=== PATIENT | male | born 1960 ===

== ENCOUNTER 2023-07-05 08:15 | Outpatient (REF) | payer OTHER, SELFPAY | END 2023-07-05 08:16 | disposition home or self-care (01) | LOC: HO.HOSX 08:15 | PROVIDERS: Visit Provider Orthopaedic Surgery | DX: M75.42 Impingement syndrome of left shoulder (principal) | CPT/HCPCS: 73030 ==

== ENCOUNTER 2023-07-05 12:52 | Outpatient (AMB) | payer OTHER, SELFPAY ==
--- NOTE | 2023-07-05 13:02 | MHC.OFFVIS ---
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 Patient reports ongoing pain for 8 years. He states that his pain is the same as his right shoulder before he had surgery. Patient had surgery about 8 years ago. He denies any pain in his right shoulder. He denies any fevers or chills. He has had injections in the past which gave him minimal relief. He has also done physical therapy for 12 weeks over the last 6 months which aggravated his pain. He has tried Tylenol and anti-inflammatory medicines which gave him minimal relief. Most of the pain is along the superior and lateral aspects of his left shoulder. Allergies No Known Allergies Allergy (Verified 07/05/23 13:05) [facility] Social History (Updated 07/05/23 @ 13:05 by Neil Nix) Alcohol intake: current Patient Tobacco Use Status: Never used Tobacco Physical Exam Vital Signs: BMI result Body Mass Index 34.3 Const Other: Well-nourished well-developed very friendly male awake alert and oriented x3 in no acute distress Lungs - clear to auscultation bilaterally with symmetric expansion Cardiovascular exam - regular rate and rhythm Abdominal exam - soft nontender nondistended Extrem Other: Bilateral upper extremity examination shows good capillary refill, no skin lesions noted, normal sensation light touch Left shoulder examination shows slightly decreased range of motion when compared to his right shoulder, 4+ out of 5 strength with supraspinatus testing, positive impingement signs, tenderness over his acromioclavicular joint, no instability Assessment & Plan Assessment & Plan (1) Impingement syndrome of left shoulder: Code(s): M75.42 - Impingement syndrome of left shoulder Plan: Mr. Hart presents with left shoulder pain due to impingement syndrome, acromioclavicular joint arthritis and rotator cuff tendinosis versus possible rotator cuff tearing. I had a lengthy discussion with the patient regarding the treatment options. At this point he has failed continued non operative treatments. The risks and benefits of left shoulder surgery were discussed at length with the patient. The patient wishes to proceed with surgery. Surgery will most likely involve left shoulder diagnostic arthroscopy with distal clavicle excision, acromioplasty and rotator cuff repair showed a full-thickness tear be found at the time of his surgery. The patient will contact my office to pick a surgery date. He will be given a prescription for pain medicine at the time of his surgery. He will follow-up as instructed. Feel free to call me at any time should questions regarding his orthopedic management arise. I spent 22 minutes in reviewing the patient's records and imaging studies, seeing the patient and documenting in the medical record. Orders: Orders XR shoulder LT min 2V Today M25.512 - Pain in left shoulder Coding Level of Care Code Est Pt Level 2 (41704) Diagnoses Impingement syndrome of left shoulder M75.42
[2023-07-05 13:05] VITALS: BMI 34.3
== END 2023-07-05 13:27 | disposition home or self-care (01) ==
PROVIDERS: PCP Physician Assistant Medical; Visit Provider Orthopaedic Surgery
DX: M75.42 Impingement syndrome of left shoulder (principal)
CPT/HCPCS: 99212

== ENCOUNTER 2023-08-03 08:08 | Day surgery (SDC) | payer OTHER, SELFPAY ==
[2023-08-01 10:03] VITALS: BMI 35.3
--- NOTE | 2023-08-02 09:14 | P.CONAN_ITS ---
Documented by User: Yesica Coombs NP 08/02/23 09:14 HPI - Anesthesia Eval Consult details Narrative: 63yo M for Shoulder Arthroscopy,distal clavical excision,acromialplasty,poss rotator cuff repair [facility] Active Problems Active Problems: All Active Problems (Updated 08/01/23 @ 10:01 by Alma Alejo RN) Impingement syndrome of left shoulder (Acute) Left shoulder pain (Acute) Past Medical History Medical History (Updated 08/03/23 @ 08:26 by Maritza Ann) Sleep apnea Hypothyroid Surgical History Surgical History (Updated 08/03/23 @ 08:29 by Maritza Ann) H/O hemorrhoidectomy H/O neck surgery Hx of shoulder surgery Hx of knee surgery Social History Social History (Updated 07/05/23 @ 13:05 by Neil Nix) Alcohol intake: current Alcohol intake frequency: holidays/special occasions only Patient Tobacco Use Status: Never used Tobacco Use of substances other than those prescribed or required for medical reasons: No Are you DNR?: No Advance Directives: No Advance Directives Information Provided: Yes Meds Allergies Allergy/AdvReac Type Severity Reaction Status Date / Time No Known Allergies Allergy Verified 08/03/23 08:28 Active Medications: Current Medications Cefazolin Sodium/Dextrose (Ancef) 2 gm in 50 mls @ 100 mls/hr IV PREOP ONE Stop: 08/03/23 04:04 Home Medications Medication Instructions Recorded Confirmed Last Taken Type alprazolam 0.5 mg tablet 0.5 mg PO DAILY PRN anxiety 08/01/23 08/03/23 Unknown History levothyroxine 100 mcg tablet 100 mcg PO DAILY 08/01/23 08/03/23 08/03/23 History Exam Exam Date and Time: August 02, 2023 0914 Height,Weight and Vital Signs: Height 6 ft Weight 117.934 kg Assessment and Plan Assessment Anesthesia Assessment: Chart Reviewed Documented by User: Cecilio Walker MD 08/03/23 09:19 [facility] Past Medical History Medical History (Updated 08/03/23 @ 08:26 by Maritza Ann) Sleep apnea Hypothyroid Family History Family history of problems with anesthesia: No Surgical History Surgical History (Updated 08/03/23 @ 08:29 by Maritza Ann) H/O hemorrhoidectomy H/O neck surgery Hx of shoulder surgery Hx of knee surgery History of Problems with Anesthesia: No Social History Social History (Updated 07/05/23 @ 13:05 by Neil Nix) Alcohol intake: current Alcohol intake frequency: holidays/special occasions only Patient Tobacco Use Status: Never used Tobacco Use of substances other than those prescribed or required for medical reasons: No Are you DNR?: No Advance Directives: No Advance Directives Information Provided: Yes Meds Allergies Allergy/AdvReac Type Severity Reaction Status Date / Time No Known Allergies Allergy Verified 08/03/23 08:28 Home Medications Medication Instructions Recorded Confirmed Last Taken Type alprazolam 0.5 mg tablet 0.5 mg PO DAILY PRN anxiety 08/01/23 08/03/23 Unknown History levothyroxine 100 mcg tablet 100 mcg PO DAILY 08/01/23 08/03/23 08/03/23 History Exam Airway Mallampati Class: IV TM Dist: <=3cm Neck ROM: Poor Heart: rrr Lungs: cta Assessment and Plan Assessment Anesthesia Assessment: Anesthesia Plan Discussed Final Anesthetic Review Family History of Problems with Anesthesia: No History of Problems with Anesthesia: No NPO: Yes ASA Class: III Final Preanesthetic Review: No Changes in Pt Med Stat, Meds/Allgs Chart Reviewed, Consent Obtained/Reviewed and Anes Risks/Benef Reviewed Patient Risk: Intermediate Procedure Risk: Intermediate Anesthetic Plan Anesthetic Plan: GA and Regional Block Disposition: Standard PACU
[2023-08-03] VITALS (8 sets, daily range): BP systolic 124–157; BP diastolic 62–93; PULSE 69–83; RESP 16–19; TEMP 36.3–36.6; O2SAT 95–97; BMI 35.9
--- NOTE | 2023-08-03 08:57 | PC.NURSE ---
Patient in preop and mentioned that he sees a linotype machinist apprentice and sleep study doctor from [facility] and has been worked up for sleep apnea recently. He states I want to tell you this because no one listens to me, I have told my linotype machinist apprentice doctor that my sats go down as low as 87% at rest when im home and I get short of breath at rest sometimes too. I have had a few sleep studies and they all come back normal but my last one showed sleep apnea. I do have a CPAP at home that I am trying to get used to and I wear sometimes Patient further explained that he is very scared of how he will breathe under anesthesia and does not want to lay flat. No records of any respiratory issues in computer system. Current Sao2 98%, Respirations easy and regular, Lung sounds clear throughout. Dr. Walker made aware and at bedside to discuss with patient. May proceed with surgery at this time.
[2023-08-03] MEDS: Lactated Ringers 1,000 ML 100 ML IVCONT (09:11)
--- NOTE | 2023-08-03 11:40 | P.BOP_ITS ---
Brief Operative Note Date of Service: 08/03/23 Pre-op diagnosis: Left shoulder impingement syndrome, left shoulder acromioclavicular joint arthritis, left shoulder adhesive capsulitis Post-op diagnosis: same Procedure: Left shoulder diagnostic arthroscopy with left shoulder arthroscopic distal clavicle excision, left shoulder arthroscopic acromioplasty, left shoulder arthroscopic anterior capsular release, left shoulder manipulation under anesthesia Implants: none Surgeon: Esequiel Ley MD Anesthesia: GETA and regional Was an Precision Optics Technician used for this Procedure?: No Estimated blood loss (mL): 10 Pathology: none sent Condition: stable Disposition: PACU
--- NOTE | 2023-08-03 11:41 | W.PM.OPN ---
Operative Note Operative Note Date of Service: 08/03/23 Narrative: After the patient was identified as Bridger Hart and their left shoulder was initialed by myself the patient was brought to the holding area where a left shoulder interscalene regional block was performed by the anesthesiologist in routine fashion. The patient was then brought to the operating room where general anesthesia was induced by the anesthesiologist in routine fashion. The patient was given 2 g of IV Ancef preoperatively for infection prophylaxis. Examination under anesthesia of the patient's left shoulder showed decreased range of motion when compared to the right shoulder. The patient's left shoulder had forward flexion to 120 degrees compared to 170 degrees, external rotation to 20 degrees compared to 60 degrees, and internal rotation to 40 degrees compared to 50 degrees. The patient was gently positioned in the beach chair position with all bony prominences well padded. The patient's left shoulder region and upper extremity were prepped and draped in sterile fashion. A formal time-out was completed. A #11 scalpel blade was used to make a posterior portal 2 cm inferior and 1 cm medial to the posterolateral corner of the acromion. Blunt trocar technique was used to enter the glenohumeral joint in routine fashion. An anterior portal was made just lateral to the coracoid process after proper positioning was confirmed using a spinal needle. Diagnostic arthroscopy showed minimal degenerative changes of the glenoid and humeral head articular surfaces. There was no evidence of rotator cuff tearing. There was no evidence of injury to the biceps tendon or its insertion onto the glenoid. There was inflammation of the anterior joint capsule consistent with adhesive capsulitis. The ArthroCare Wand was then used to perform an anterior capsular release between the inferior border of the biceps tendon and the superior border of the subscapularis tendon. The arthroscope was then placed from the posterior portal into the subacromial space. A lateral portal was made 2 fingerbreadths lateral to the anterior lateral corner of the acromion. The ArthroCare Wand was used to ablate soft tissues along the undersurface of the acromion as well as to excise the coracoacromial ligament. There was a sharp spur along the undersurface of the acromion which was removed using the hooded bur. The arthroscope was then placed into the lateral portal and the acromioplasty was completed with the bur in the posterior portal using the posterior aspect of the acromion as a cutting block. The ArthroCare Wand was then brought in through the anterior portal and was used to ablate soft tissues along the acromioclavicular joint and distal clavicle. The posterior and superior ligamentous structures were left intact. A distal clavicle excision of 8 mm was performed using the hooded bur. Any remaining bursal tissue was removed using the arthroscopic shaver. The subacromial space was irrigated and then drained. All arthroscopic instruments were removed. A gentle manipulation under anesthesia was then performed. Full passive range of motion was easily obtained. The 3 portals were closed with 3-0 nylon interrupted suture. The subacromial space was injected with Marcaine. Dry sterile dressing was placed over all incisions. The patient's left upper extremity was placed into a sling. The patient was awoken and extubated in the operating room. The patient was transferred to the recovery room in stable condition.
[2023-08-03] MEDS: cefTRIAXone sodium 1 GM in 0.9 % Sodium Chloride 50 ML IV (12:14)
== END 2023-08-03 13:15 | disposition home or self-care (01) ==
PROVIDERS: PCP Physician Assistant Medical; Visit Provider Orthopaedic Surgery
PROC: (CPT 29805; principal; 2023-08-03 09:40)
DX: M75.02 Adhesive capsulitis of left shoulder (principal); M75.42 Impingement syndrome of left shoulder; M25.512 Pain in left shoulder; M19.012 Primary osteoarthritis, left shoulder; G47.30 Sleep apnea, unspecified; E03.9 Hypothyroidism, unspecified; Z98.890 Other specified postprocedural states; Z79.899 Other long term (current) drug therapy
CPT/HCPCS: 29824; 29825; 29826; J0131; J0171; J0330; J0690; J0696; J2250; J2371; J2405; J2795

== ENCOUNTER → 2023-08-03 08:08 | Outpatient (BNV) | payer OTHER, SELFPAY | PROVIDERS: PCP Physician Assistant Medical; Visit Provider Orthopaedic Surgery | DX: M75.42 Impingement syndrome of left shoulder (principal); M75.32 Calcific tendinitis of left shoulder; M19.012 Primary osteoarthritis, left shoulder | CPT/HCPCS: 29824; 29825; 29826 ==

== ENCOUNTER 2023-08-16 13:35 | Outpatient (AMB) | payer OTHER, SELFPAY ==
--- NOTE | 2023-08-16 13:54 | A.OFFVIS_ITS ---
Intake Intake Visit Reasons: PO-Lt Shld 08/03 Intake Note: Bridger 63 yr old male presents today for his P/O visit for his left shoulder from 08/03/[address] Ley. States he has no pain however it spikes up to 3- 4/10 with exercise. He continues with his home stretching program. He is no longer taking narcotics for his discomfort. He denies any fevers or chills. Allergies No Known Allergies Allergy (Verified 08/16/23 13:58) Medication List - Last Reconciled 08/17/23 by Esequiel Ley MD alprazolam 0.5 mg PO DAILY PRN levothyroxine 100 mcg PO DAILY oxycodone-acetaminophen 5-325 mg (Percocet) 2 tabs PO Q4H PRN PFSH Medical History (Updated 08/03/23 @ 08:26 by Maritza Ann) Sleep apnea Hypothyroid Surgical History (Updated 08/03/23 @ 08:29 by Maritza Ann) H/O hemorrhoidectomy H/O neck surgery Hx of shoulder surgery Hx of knee surgery Social History Alcohol intake: current Alcohol intake frequency: holidays/special occasions only Patient Tobacco Use Status: Never used Tobacco Physical Exam Extrem Other: Physical examination of the patient's left shoulder shows that the surgical incisions are healing well, no erythema, almost full range of motion when compared to his right shoulder with mild discomfort Assessment & Plan Assessment & Plan (1) Left shoulder pain: Code(s): M25.512 - Pain in left shoulder Plan Mr. Hart is doing very well after undergoing left shoulder arthroscopic surgery on 08/03/2023. His sutures were removed and Steri-Strips placed over his incisions. Will continue with his home stretching program. The do's and don'ts of lifting were discussed at length with the patient. He will contact me prior to his follow-up appointment in 8 weeks should any questions or concerns arise. Feel free to call me at any time should questions regarding his orthopedic management arise. Coding Level of Care Code Global (91508) Diagnoses Left shoulder pain M25.512
== END 2023-08-16 14:26 | disposition home or self-care (01) ==
PROVIDERS: PCP Physician Assistant Medical; Visit Provider Orthopaedic Surgery
DX: M25.512 Pain in left shoulder (principal)
CPT/HCPCS: 99024

== ENCOUNTER → 2023-08-16 13:35 | Outpatient (BNVA) | payer OTHER, SELFPAY | PROVIDERS: PCP Physician Assistant Medical; Visit Provider Orthopaedic Surgery ==

== ENCOUNTER 2025-07-31 09:19 | Outpatient (AMB) | payer OTHER, SELFPAY ==
[2025-07-31 09:33] VITALS: BMI 34.3
--- NOTE | 2025-07-31 09:33 | HO.SPINEOV ---
Vital Signs 07/31/25 09:33 Height 6 ft 1 in Weight 260 lb BMI 34.3 Intake Visit Reasons: Neck pain Intake Note: Mr. Hart is here today c/o neck pain. MRI done at [facility] Retail Leader Required: No Allergies No Known Allergies Allergy (Verified 07/31/25 09:34) Physical Exam Vital Signs: BMI result Body Mass Index 34.3 Assessment & Plan Assessment & Plan (1) Status post cervical spinal fusion: Code(s): Z98.1 - Arthrodesis status Category: Surgical Plan Dear colleague Thank you for referring Bridger Hart to the office today with a chief complaint of neck soreness. HPI: This patient underwent an anterior diskectomy and fusion [address] cornejo. Since then he is having episodic attacks of chest tightness that radiates down his arms after a 2 mi walk. The symptoms disappear after sitting. He returned to Dr. Patel who according to the patient was not receptive to hearing about the symptoms. He comes in for a 2nd opinion. I reviewed the imaging of the cervical spine. An x-ray shows a solid fusion C6-7. An MRI of the cervical spine is unremarkable. In my opinion, he suffering from hyperventilation that are the cause for his episodic events. He was kind of surprised to hear that hyperventilation does not always imply the classic phenomena of heavy breathing. He was satisfied with the explanation. He may see me for lumbar complaints in the future. I spent 30 minutes in his consult reviewing imaging, history and discussing plan of care. Thank you for allowing me take care of your patient. Anoop Anglin MD, PhD Spine Fellowship Trained Neurosurgeon Director, [facility] Coding Level of Care Code New Pt Level 3 (98185) Diagnoses Status post cervical spinal fusion Z98.1
--- OUTSIDE RECORDS SUMMARY | 2025-07-31 10:19 | XMS_ITS | Clinical Summary ---
Author Organization [facility] Address [address] [place] [id number] Care Team Providers Care Auto Bumper Straightener Name Role Phone Rosalie Tong MD Primary Care Provide r Allergies No known active allergies Medications Medication Sig Dispensed Refills Start Date End Date Status clotrimazole-betametha sone (LOTRISONE) cream apply to rash twice a day if needed 0 01/30/2018 Active levothyroxine (SYNTHROID, LEVOXYL) tablet 100 mcg 0 02/24/2018 Active Social History Tobacco Use Types Packs/Day Years Used Date Smoking Tobacco: Never Alcohol Use Standard Drinks/Week Comments Yes 0 (1 standard drink = 0.6 oz pur e alcohol) social Sex and Gender Information Value Date Recorded Sex Assigned at Not on file Gender Identity Not on file Sexual Orientation Not on file Job Start Date Occupation Industry Not on file Not on file Not on file Last Filed Vital Signs Vital Sign Reading Time Taken Comments Blood Pressure - - Pulse - - Temperature - - Respiratory Rate - - Oxygen Saturation - - Inhaled Oxygen Concentration - - Weight 111.1 kg (245 lb) 03/13/2018 1:22 PM EDT Height 182.9 cm (6') 03/13/2018 1:22 PM EDT Body Mass Index 33.23 03/13/2018 1:22 PM EDT Plan of Treatment Health Maintenance Due Date Last Done Comments Hepatitis C Screening 1962 COVID-19 Vaccine (#1) 1962 Depression Screening 1974 Preventative Health Evaluation 1980 DTap / Tdap / Td (1 - Tdap) 1981 Colon Cancer Screening (Colonoscopy) 2007 Shingrix-Zoster Vaccine (1 of 2) 2012 Influenza Vaccine (#1) 2025 RSV Adult > 60+ Yrs or Pregn ant (1 - 1-dose 75+ series) 2037 Hepatitis B Vaccines Aged Out No long er eligible based on patient's age to complete this topic Pneumococcal Vaccine Aged Out No long er eligible based on patient's age to complete this topic RSV Ped < 20 months Aged Out No longe r eligible based on patient's age to complete this topic Care Teams Auto Bumper Straightener Relationship Specialty Start Date End Date Rosalie Tong MD [address] [place], [place] [id number] [id number] PCP - General Internal Medicine 03/06/18
--- OUTSIDE RECORDS SUMMARY | 2025-07-31 10:19 | XMS_ITS | Encounter Summary ---
Author Organization [facility] Address [address] [place] [address] Phone Care Team Providers Care Donor Services Coordinator Name Role Phone Bety Aguirre Primary Care Provider [phone] Chico Bonilla MD Unavailable [phone] Encounter Details Date Type Department Care Team (Late st Contact Info) Description 10/19/2022 Procedure Pass OR Admitting Dept - Virtual Department [address] [place] [address] Social History Tobacco Use Types Packs/Day Years Used Date Smoking Tobacco: Never Smokeless Tobacco: Never Alcohol Use Standard Drinks/Week Comments Never 0 (1 standard drink = 0.6 oz pur e alcohol) Comments Unknown Sex and Gender Information Value Date Recorded Sex Assigned at Choose not to disclose 10:59 AM EST Legal Sex Male 12:50 PM EDT Gender Identity Choose not to disclose 10:59 AM EST Sexual Orientation Choose not to disclose 2021 10:59 AM EST documented as of this encounter Plan of Treatment Not on file documented as of this encounter Visit Diagnoses Not on filedocumented in this encounter Additional Health Concerns Assessment Noted Time PHQ-2 Depression Total Score: 0 09/05/20 22 9:37 AM EST documented as of this encounter Care Teams Donor Services Coordinator Relationship Specialty Start Date End Date Bety Aguirre PA PCP - General Unknown Provider Specialty 08/03/20 Chico Bonilla MD [address] [place] [address] Internal Medicine 09/08/20 documented as of this encounter Additional Source Comments The information contained in this document represents components of the legal health record. It is not the complete legal health record.[facility]
--- OUTSIDE RECORDS SUMMARY | 2025-07-31 10:19 | XMS_ITS | Clinical Summary ---
Author Organization [address] [place] [address] Address [address] [place] [address] Phone Care Team Providers Care Grease Refining Supervisor Name Role Phone Estuardo Majano NP Primary Care Provider [phone] Allergies Active Allergy Reactions Criticality Noted Date Comments Grass Pollen 12/03/2024 Mold 12/03/2024 Pollen Extracts 12/03/2024 Medications dapagliflozin propanediol (FARXIGA) 10 mg tablet Take 1 tablet (10 mg total) by mouth 2 (two) times a day. Active levothyroxine sodium (TIROSINT) 100 mcg capsule Take 1 capsule (100 mcg total) by mouth 1 (one) time each day. Active Hospital, Clinic, or Other Facility Administered Medication Ordered Dose Route Frequency Start Date End Date Status perflutren lipid microsphere (DEFINITY) 1.3 mL in sodium chloride 0.9% 8.7 mL injection 10 mL IV Once in imaging 12/18/2024 Active Active Problems Problem Noted Date Diagnosed Date Palpitations 12/03/2024 Assessment & Plan (12/03/2024 2:26 PM EST): He does continue to endorse episodes of palpitations which have been present since he was a teenager. He does not endorse increase frequency or duration of his palpitations. We did discuss triggers such as increased caffeine or alcohol intake, dehydration or infection. He is very mindful about his caffeine consumption and has completely discontinued even drinking the caffeinated coffee. We did discuss the potential for updating monitoring to further evaluate for increase in ectopy or for any sustained arrhythmias however the patient would like to defer at this time. Encounters Date Type Department Care Team Description 05/28/2025 10:00 AM EDT Ancillary Procedure [facility] Cardiology [facility] - [address] [place] [address] Chest pain, unspecified type; Shortness of breath 05/12/2025 Telephone [facility] - [address] [place] [address] Radha Pedroza MD 05/06/2025 Telephone [facility] - [facility] [address] [place] [address] Estuardo Majano NP from Last 3 Months Surgical History Surgery Date Site/Laterality Comments OTHER SURGICAL HISTORY Right PROCEDURE: ARTHROSCOPY SHOULDER SURGI KNEE ARTHROSCOPY PROCEDURE: CA ARTHROSCOPY KNEE DIAGNOSTIC W/WO SYNOVIAL BX SPX OTHER SURGICAL HISTORY PROCEDURE: ---- OTHER ----; COMMENT: hemorrhoidectomy COLONOSCOPY 04/18/2019 PROCEDURE: HISTORICAL COLONOSCOPY; COMMENT: performed by Lolita TRUJILLO, Hans Mari OTHER SURGICAL HISTORY PROCEDURE: HISTORY OTHER; COMMENT: Hemorrhoid operation Medical History Medical History Date Comments History of TIA (transient is chemic attack) 12/02/2018 DX:History of TIA (transient ischemic attack) Anxiety 12/02/2018 DX:Anxiety Bo's thyroiditis 12/02/2018 DX:Angel nohemy's thyroiditis; COMMENT: hypothyroidism Panic attack 12/02/2018 DX:Panic attack Positive D dimer 12/02/2018 DX:Positive D d primo GERD (gastroesophageal reflu x disease) 12/10/2018 DX:GERD (gastroesophageal re flux disease) Hyperlipidemia 12/10/2018 DX:Hyperlipidemi a History of herpes zoster 12/10/2018 DX:Hist ory of herpes zoster Insomnia 12/10/2018 DX:Insomnia Allergic rhinitis DX:Allergic rh initis Chronic dyspnea DX:Chronic dyspn ea Anal fissure DX:Anal fissure Diarrhea DX:Diarrhea Hypothyroidism DX:Hypothyroidis m Lymphocytic colitis DX:Lymphocyt ic colitis Class 1 obesity DX:Class 1 obesi ty Throat irritation DX:Throat irri tation Transient cerebral ischemia DX:T ransient cerebral ischemia Tubular adenoma of colon DX:Tubu lar adenoma of colon Family History Medical History Relation Name Comments Prostate cancer Father Coronary artery disease Mother Relation Name Status Comments Father Mother Social History Tobacco Use Types Packs/Day Years Used Date Smoking Tobacco: Former Smokeless Tobacco: Never Alcohol Use Standard Drinks/Week Comments Yes 0 (1 standard drink = 0.6 oz pur e alcohol) Sex and Gender Information Value Date Recorded Sex Assigned at Not on file Legal Sex Male 2:48 PM EST Gender Identity Not on file Sexual Orientation Not on file Obstetrics History Last Filed Vital Signs Vital Sign Reading Time Taken Comments Blood Pressure 152/85 05/28/2025 10:39 AM EDT Pulse 70 12/03/2024 1:45 PM EST Temperature - - Respiratory Rate - - Oxygen Saturation 97% 12/03/2024 1:45 PM EST Inhaled Oxygen Concentration - - Weight 120 kg (265 lb) 05/28/2025 10:39 AM EDT Height 185.4 cm (6' 1 ) 05/28/2025 10:39 AM EDT Body Mass Index 34.96 05/28/2025 10:39 AM EDT Plan of Treatment Upcoming Encounters Date Type Department Care Team (Late st Contact Info) Description 08/04/2025 7:40 AM EST Office Visit [facility] - [address] [facility] [address] [place] [id number] Beth Nixon NP [address] [place] [address] [place] [id number] Health Maintenance Due Date Last Done Comments Colorectal Cancer Screening: Colonoscopy 1960 Pneumococcal Vaccine: 50+ Ye ars (1 of 1 - PCV) 2012 RSV Immunization Adult Patie nts (1 - Risk 50-74 years 1-dose series) 2012 Zoster Vaccines (1 of 2) 2012 DTaP,Tdap,and Td Vaccines (2 - Td or Tdap) 02/17/2018 02/18/2008 Cholesterol Screening (Lipid Panel) 09/09/2022 HIV Screening 09/09/2022 Hepatitis C Screening 09/09/2022 Social Influencers of Health Screening 09/09/2022 Depression Screening 10/01/2024 COVID-19 Vaccine (1 - 2023-2 5 season) 2025 Influenza Vaccine (#1) 2025 HIB Vaccines Aged Out No longer eligi ble based on patient's age to complete this topic HPV Vaccines Aged Out No longer eligi ble based on patient's age to complete this topic Hepatitis A Vaccines Aged Out No long er eligible based on patient's age to complete this topic Hepatitis B Vaccines Aged Out No long er eligible based on patient's age to complete this topic IPV Vaccines Aged Out No longer eligi ble based on patient's age to complete this topic MMR Vaccines Aged Out No longer eligi ble based on patient's age to complete this topic Meningococcal ACWY Vaccine Aged Out N o longer eligible based on patient's age to complete this topic Meningococcal B Vaccine Aged Out No l onger eligible based on patient's age to complete this topic RSV Immunization Patients Un sameera 20 months Aged Out No longer eligible b ased on patient's age to complete this topic Varicella Vaccines Aged Out No longer eligible based on patient's age to complete this topic Procedures Procedure Name Priority Date/Time Associated Diagnosis Comments TRANSTHORACIC ECHOCARDIOGRAM (TTE) COMPLETE Routine 05/28/2025 10:40 AM EDT Chest pain, unspecified type Shortness of breath from Last 3 Months Results * (ABNORMAL) TRANSTHORACIC ECHOCARDIOGRAM (TTE) COMPLETE (05/28/2025 10:40 AM EDT) Left Atrium Minor [place] 7.0 cm CV PACS Left Atrium Major [place] 6.0 cm CV PACS LA Area Sys (A2C) 23 cm2 CV PACS LA Area Sys (A4C) 20 cm2 CV PACS LA Volume (BP) 65 mL CV PACS RA Area 19.9 cm2 CV PACS RA 2D Volume 52 mL CV PACS AV Mean Gradient 4 mmHg CV PACS Ao VTI 33.1 cm CV PACS AV Peak Rusty 1.6 m/s CV PACS AV Peak Gradient 10 mmHg CV PACS AV Area Continuity Equation 2.8 cm2 CV PACS AV Area Peak Velocity 3.0 cm2 CV PACS Aortic Sinus Valsalva 4.0 cm CV PACS Ascending Aorta 3.5 cm CV PACS IVSD 1.3(A) 0.6 - 1.0 cm CV PACS LVIDD 4.8 4.2 - 5.8 cm CV PACS LVIDS 3.2 2.5 - 4.0 cm CV PACS LVOT Diameter 2.3 cm CV PACS LVOT Mean Grad 2 mmHg CV PACS LVOT Peak VTI 22.5 cm CV PACS LVOT Mean Rusty 0.7 m/s CV PACS LVOT Peak Rusty 1.2 m/s CV PACS LVOT Peak Gradient 5 mmHg CV PACS LVPWD 1.0 0.6 - 1.0 cm CV PACS MV E' Tissue Velocity Lateral 8 cm/s CV PACS MV E' Tissue Velocity Septal 6 cm/s CV PACS LVOT Area 4.2 cm2 CV PACS LVOT Stroke Volume 99 mL CV PACS E Wave Deceleration Time 208 119 - 242 ms CV PACS MV Peak A Rusty 0.60 m/s CV PACS MV Peak E Rusty 0.70 m/s CV PACS MV Mean Gradient 1 mmHg CV PACS MV VTI 25.2 cm CV PACS Mitral Valve Max Velocity 0.9 m/s CV PACS MV Peak Gradient 3 mmHg CV PACS MV Area Continuity Equation 3.7 cm2 CV PACS PV Acceleration Time 165 ms CV PACS PV Acceleration Time 155 ms CV PACS PV Acceleration Time 160 ms CV PACS RV Diastolic Basal Dimension 4.0 2.5 - 4.1 cm CV PACS RV S' 17 cm/s CV PACS TAPSE 26 mm CV PACS TR Peak Velocity 2.30 m/s CV PACS TR Peak Gradient 21 mmHg CV PACS E/E' Ratio Septal 12 CV PACS E/E' Ratio Averaged 10 CV PACS Relative Wall Thickness ratio 0.42 0.24 - 0.42 CV PACS LVOT:AV VTI Index 0.68 CV PACS FS 33 % CV PACS LV Mass 2D 206(A) 96 - 200 g CV PACS MV VTI:LVOT VTI ratio 1.1 CV PACS LVOT flow 291 mL/s CV PACS AV Velocity Ratio 0.75 CV PACS E/A Ratio 1.2 0.8 - 2.0 CV PACS E/E' Ratio Lateral 9 CV PACS LVOT Stroke Index 41 mL/m2 CV PACS Ascending Aorta Index 1.44 cm/m2 CV PACS RA 2D Volume Index 21 18 - 32 mL/m2 CV PACS CARLO Index (VTI) 1.16 cm2/m2 CV PACS CARLO Index (Pk Rusty) 1.23 cm2/m2 CV PACS LVIDD Index 1.98 cm/m2 CV PACS LVIDS Index 1.32 cm/m2 CV PACS LA Volume Index (BP) 27 mL/m2 CV PACS LV Mass Index 2D 85 50 - 102 g/m2 CV PACS BSA 2.49 m2 CV PACS RV Free Wall Peak S' 17 cm/s CV PACS RA Major [place] 5.6 cm CV PACS RA Major [place] Index 2.3 2.1 - 2.7 cm/m2 CV PACS MV PHT 60 ms CV PACS AV Area 2D 3.2 cm2 CV PACS CARLO Index (2D) 1.32 cm2/m2 CV PACS Inferior Vena Cava Diameter At Expiration 1.9 cm CV PACS IVC Expiration Index 0.78 cm/m2 CV PACS AV Area Index 1.3 CV PACS Right Ventricular Peak Systolic Pressure 24 mmHg CV PACS Est. RA Pressure 3 mmHg CV PACS Anatomical Region Laterality Modality Ultrasound Narrative 06/02/2025 10:49 AM EDT Left ventricle cavity size is normal. There is mild asymmetric basal septal hypertrophy. Systolic function is normal with an ejection fraction of 55-60%. There are no regional LV wall motion abnormalities. Right ventricle cavity appears normal. Systolic function is normal. No hemodynamically significant valvular abnormalities. The right ventricular systolic pressure is normal. The RVSP is estimated at 24 mmHg. There are no significant changes compared to previous study of 12/27/2020. Left Ventricle Left ventricle cavity size is normal. There is mild asymmetric basal septal hypertrophy. Systolic function is normal with an ejection fraction of 55-60%. There are no regional LV wall motion abnormalities. There is age appropriate left ventricular diastolic function. Right Ventricle Right ventricle cavity appears normal. Systolic function is normal. Left Atrium Left atrium cavity size is normal. Right Atrium Right atrium cavity is normal. IVC/SVC Inferior vena cava structure is normal. RA pressures is estimated to be 3 mmHg (IVC diameter <21 mm and decreases >50% during inspiration). Mitral Valve The leaflets are mildly thickened. There is annular calcification. There is trace regurgitation. There is no evidence of mitral valve stenosis. Tricuspid Valve Tricuspid valve structure is normal. There is trace regurgitation. There is no evidence of tricuspid valve stenosis. The right ventricular systolic pressure is normal. The RVSP is estimated at 24 mmHg. Aortic Valve The aortic valve is trileaflet. The leaflets are mildly thickened. There is trivial regurgitation. There is no evidence of aortic valve stenosis. Pulmonic Valve Visualized portions of the pulmonic valve appear normal. There is trace pulmonic valve regurgitation. There is no evidence of pulmonic valve stenosis. Ascending Aorta The Sinus of Valsalva is (4.0 cm). The ascending aorta is (3.5 cm). Pericardium Pericardium appears normal. There is no pericardial effusion. There appears to be a hypoechoic structure near the liver in the subcostal views. Study Details Overall the study quality was adequate. Wall Scoring Baseline Score Index: 1.00 The left ventricular wall motion is normal. us Gloria Pope NP CV ECHO PROCEDURES Fin al Result from Last 3 Months [facility] Care Teams Grease Refining Supervisor Relationship Specialty Start Date End Date Estuardo Majano NP [facility] [address] [facility] [address] PCP - General Nurse Practitioner 12/01/24
--- OUTSIDE RECORDS SUMMARY | 2025-07-31 10:19 | XMS_ITS | Encounter Summary ---
Author Organization [facility] Address [address] [place] [phone] Phone Care Team Providers Care Sewer Builder Name Role Phone Bety Aguirre Primary Care Provider [phone] Chico Bonilla MD Unavailable [phone] Encounter Details Date Type Department Care Team (Late st Contact Info) Description 09/04/2022 Telephone [facility] Endocrine, Diabetes, and Hypertension [address] [place] [address] [facility] [address] [facility] [place] [address] [email or web address] History Tobacco Use Types Packs/Day Years Used Date Smoking Tobacco: Never Smokeless Tobacco: Never Comments Unknown Sex and Gender Information Value [...] Noted Time PHQ-2 Depression Total Score: 0 10/06/19 20 2:57 PM EST documented as of this encounter Care Teams Sewer Builder Relationship Specialty Start Date End Date Bety Aguirre PA PCP - General Unknown Provider Specialty 08/03/20 Chico Bonilla MD [address] [place] [address] Internal Medicine 09/08/20 documented as of this encounter Additional Source Comments The information contained in this document represents components of the legal health record. It is not the complete legal health record.[facility]
--- OUTSIDE RECORDS SUMMARY | 2025-07-31 10:19 | XMS_ITS | Encounter Summary ---
Author Organization [facility] Address [address] [place] [phone] Phone Care Team Providers Care Major Assembly Lineman Name Role Phone Bety Aguirre Primary Care Provider [phone] Chico Bonilla MD Unavailable [phone] Encounter Details Date Type Department Care Team (Late st Contact Info) Description 10/06/2022 Procedure Pass [address] [address] Social History Tobacco Use Types Packs/Day Years [...] documented as of this encounter Care Teams Major Assembly Lineman Relationship Specialty Start Date End Date Bety Aguirre PA PCP - General Unknown Provider Specialty 08/03/20 Chico Bonilla MD [address] [place] [address] Internal Medicine 09/08/20 documented as of this encounter Additional Source Comments The information contained in this document represents components of the legal health record. It is not the complete legal health record.[facility]
--- OUTSIDE RECORDS SUMMARY | 2025-07-31 10:19 | XMS_ITS | Clinical Summary ---
Author Organization [address] Address [address] [place] [phone] Phone Care Team Providers Care Hardwood Finisher Name Role Phone Unavailable Primary Care Provider Unavailabl e Allergies Active Allergy Reactions Criticality Noted Date Comments Mold Other (See Comments) Medium 04/30/2024 Medications levETIRAcetam (KEPPRA) 250 mg immediate release tablet 04/15/2024 Acti ve levothyroxine (SYNTHROID, LEVOTHROID) 100 MCG tablet Take 1 tablet (100 mcg total) by mouth daily. Active Active Problems Problem Noted Date Diagnosed Date Anal fissure 04/30/2024 Class 2 obesity 04/30/2024 Diarrhea 04/30/2024 Elevated blood-pressure read ing without diagnosis of hypertension 04/30/2024 Hypothyroidism 04/30/2024 Obstructive sleep apnea 04/30/2024 Severe obesity (BMI 35.0-39.9) with comorbidity (HC Code) 04/30/2024 Gasping for breath 04/30/2024 Throat irritation 04/30/2024 Transient ischemic attack 04/30/2024 Cervical spine disease 09/10/2022 Multiple thyroid nodules 09/10/2022 Sleep-disordered breathing 09/10/2022 Shortness of breath 05/11/2022 Overview (04/30/2024): Last Assessment & Plan: Ischemic work-up has been so far negative. Palpitations 11/11/2020 Overview (04/30/2024): Last Assessment & Plan: He had a quite extensive evaluation for palpitation and had infrequent PACs and PVCs. Try to reassure him. I suggest him to take propanolol as scheduled rather than as needed. He has been trying to avoid medication if possible. Colitis 04/23/2019 Tubular adenoma of colon 04/23/2019 Overview (04/30/2024): repeat screening colonoscopy in 2023 GERD (gastroesophageal reflux disease) 9 Hyperlipidemia 12/10/2018 Insomnia 12/10/2018 Anxiety 12/02/2018 Bo's thyroiditis 12/02/2018 Overview (04/30/2024): hypothyroidism Immunizations Immunization Administration Dates Next Due Td (>7 yo), 2 LF tetanus toxoid, PF, absorbed Family History Medical History Relation Name Comments Heart attack Father Stroke Paternal Grandfather Relation Name Status Comments Father Paternal Grandfather Social History Tobacco Use Types Packs/Day Years Used Date Smoking Tobacco: Never Tobacco Cessation:Counseling Given: Not Answered Alcohol Use Standard Drinks/Week Comments Yes 0 (1 standard drink = 0.6 oz pur e alcohol) Sex and Gender Information Value Date Recorded Sex Assigned at Not on file Legal Sex Male 3:57 PM EDT Gender Identity Not on file Sexual Orientation Not on file Last Filed Vital Signs Vital Sign Reading Time Taken Comments Blood Pressure 122/80 04/30/2024 2:34 PM EDT Pulse 79 04/30/2024 2:34 PM EDT Temperature 36.5 C (97.7 F) 04/30/2024 2:34 PM EDT Respiratory Rate - - Oxygen Saturation 97% 04/30/2024 2:34 PM EDT Inhaled Oxygen Concentration - - Weight 123.2 kg (271 lb 9.6 oz) 04/30/2024 2:34 PM EDT Height 185.4 cm (6' 1 ) 04/30/2024 2:34 PM EDT Body Mass Index 35.83 04/30/2024 2:34 PM EDT Plan of Treatment Health Maintenance Due Date Last Done Comments HIV screening 1975 Hepatitis C screening 1980 Lipid disorder screening 2002 Colon cancer screening, Colonoscopy 2007 Diabetes screening 2007 Pneumococcal Vaccine (50+ ye ars) (1 of 1 - PCV) 2012 Shingles vaccine (Shingrix) (1 of 2 - Shingrix (RZV) 2 Dose Standard Series) 2012 Tetanus adult (Td q 10,TDAP once) 02/17/2018 008 Influenza vaccine 05/01/2025 Covid-19 vaccine series ( - 2024- season) 2025 RSV Immunization (1 - 1-dose 75+ series) 2037 Meningococcal B Vaccine Aged Out No l onger eligible based on patient's age to complete this topic Meningococcal Vaccine Aged Out No mary pilo eligible based on patient's age to complete this topic Insurance [email or web address] on file [email or web address] on file [facility] Care Teams Hardwood Finisher Relationship Specialty Start Date End Date Estuardo Majano, [facility] Internal Medicine Address: [address] [place] [phone] Primary Care Provider Internal Medicine 05/16/24
--- OUTSIDE RECORDS SUMMARY | 2025-07-31 10:19 | XMS_ITS | Data Portability ---
Author Organization [place] - [facility], Allergy Address [address] [address] Care Team Providers Care Rivet Machine Operator Name Role Phone PRUDENCIO MARAH Primary Care Provider [phone] Assessment No assessment recorded. Plan of Treatment Reminders Order Date Submit Date Provider Last Modified By Organization Details Last Modified Time Details Appointments None recorded. Lab None recorded. Referral None recorded. Procedures None recorded. Surgeries None recorded. Imaging None recorded. Medication Orders clotrimazol e-betametha sone 1 %-0.05 % topical cream 2023 [facility] [employer] #[id number], [address], [id number], 5 14:25:18 clotrimazol e 1 % topical solution 2023 [facility] #[id number], [address], [id number], 5 14:25:11 Patient TargetsNo targets recorded. Patient InstructionsNo instructions recorded. Reason for Referral None Reported. Problems Name Problem SNOMED Code Status Onset Date Resolution Date Notes Provider Name and Address Organization Details Recorded Time Non-toxic uninodula r goiter 253005083 Active 2018 Nontoxic single thyroid nodule; Note: Date Diagnosed : 03/07/2019 10:22 AM (E04.1) Not Available [facility] 4 02:32:20 Deviated nasal septum 902926186 Active 2018 Deviated nasal septum; Note: Date Diagnosed : 03/07/2019 10:22 AM (J34.2) Not Available [facility] 4 02:32:33 Other specified respirato ry system anomaly NOS Active 2018 Other specified respirato ry disorders ; Note: Date Diagnosed : 03/07/2019 1:10 PM (J98.8) Not Available [facility] 4 02:32:28 Sleep disorder 88886319 Active 2018 Sleep disorder, unspecifi ed; Note: Date Diagnosed : 03/07/2019 10:22 AM (G47.9) Not Available [facility] 4 02:32:32 Bilateral diffuse otitis externa 25577446567 90439 Active 2018 Diffuse otitis externa, bilateral ; Note: Date Diagnosed : 04/10/2019 3:51 PM (H60.313) Not Available [facility] 4 02:32:23 Chronic mycotic otitis externa 439271378 Active 2018 Chronic mycotic otitis externa; Note: Date Diagnosed : 04/10/2019 3:49 PM (380.15) Not Available [facility] 4 02:32:26 Superfici al mycosis 161567439 Active 2018 Other specified superfici al mycoses; Note: Date Diagnosed : 04/10/2019 3:51 PM (B36.8) Not Available [facility] 4 02:32:19 Tinnitus of vascular origin 867322636 Active 2020 Pulsatile tinnitus, bilateral ; Note: Date Diagnosed : 12/20/2020 12:31 PM (H93.A3) Not Available [facility] 4 02:32:25 Gastroeso phageal reflux disease without esophagit is 331408783 Active 2021 Gastro-es ophageal reflux disease without esophagit is; Note: Date Diagnosed : 11/30/2021 11:20 AM (K21.9) Not Available [facility] 4 02:32:19 Allergic rhinitis 58563661 Active 2021 Other allergic rhinitis; Note: Date Diagnosed : 11/30/2021 11:21 AM (J30.89) Not Available [facility] 4 02:32:33 Diffuse otitis externa 07958778 Active 2021 Diffuse otitis externa, left ear; Note: Date Diagnosed : 03/09/2022 10:43 AM (H60.312) Not Available [facility] 4 02:32:22 Hypertrop hy of nasal turbinate s 61012228 Active 2022 Hypertrop hy of nasal turbinate s; Note: Date Diagnosed : 10/10/2022 9:57 AM (J34.3) Not Available [facility] 4 02:32:28 Tinnitus of left ear 89298272821 06 Active 2023 Tinnitus, left ear; Note: Date Diagnosed : 10/04/2023 11:08 AM (H93.12) ALEXIS ATKINS MD [address] [place] [address],[place] [address], [place], [address] , [facility] - [facility] 5 15:16:41 Sensorine ural hearing loss of bilateral ears 644041094 Active 2023 Sensorine ural hearing loss, bilateral ; Note: Date Diagnosed : 10/04/2023 11:08 AM (H90.3) Not Available [facility] 02:32:21 Impacted cerumen of bilateral ears 66747936991 87072 Active 2023 Impacted cerumen, bilateral ; Note: Date Diagnosed : 10/04/2023 1:02 PM (H61.23) Not Available [facility] 02:32:20 Chronic eczema of external auditory canal 234986487 Active 2023 ALEXIS ATKINS MD [address] [place] [address],[place] [address], [place], [address] , [facility] 4 09:48:56 Dermal mycosis 48755296 Active 2023 ALEXIS ATKINS MD [address] [place] [address],[place] [address], [place], [address] , [facility] - [facility] 4 09:57:31 Candidal otitis externa 33506757 Active 2023 ALEXIS ATKINS MD [address] [place] [address],[place] [address], [place], [address] , [facility] 09:57:31 Problem Notes None recorded. Procedures Surgical History Date Name Laterality Status Provider Name and Address Organization Details Recorded Time 4 Cerumen removal with microscope bilateral completed ALEXIS ATKINS MD 100 [facility] [address], [place], [address], [facility] 09/09/2024 09:49:07 Imaging Results None recorded. Procedure Notes None recorded. Medical Equipment None Reported. Medications Name Sig Start Date Stop Date Status Note LastModified by Organization Details LastModified Time cyclobenz aprine 10 mg tablet 07/17 completed Not Available Not Available Not Available clonidine HCl 0.1 mg tablet TAKE 1 TABLET BY MOUTH EVERY NIGHT AT BEDTIME NEEDED FOR SLEEP 07/17 completed Not Available Not Available Not Available trazodone 50 mg tablet 07/17 completed Medicati on ID: [id number] B rand Name: trazodon e Send Method: E-Prescr ibed Sub s Allowed: subs OK Medic ationGen ericName : trazodon e Not Available Not Available Not Available levetirac etam 500 mg tablet 07/17 completed Not Available Not Available Not Available clotrimaz ole-betam ethasone 1 %-0.05 % lotion 03/09 completed Medicati on ID: [id number] B rand Name: Lotrison e Send Method: E-Prescr ibed Sub s Allowed: subs OK Speci al Instruct ion: apply to bilatera l external ear bid X 2 weeks Me dication GenericN bk: Lotrison e Not Available Not Available Not Available levothyro xine 100 mcg tablet active Not Available Not Available Not Available oxycodone -acetamin ophen 5 mg-325 mg tablet TAKE 1/2 TABLET BY MOUTH THREE TIMES DAILY NEEDED FOR PAIN 07/17 completed Not Available Not Available Not Available alprazola m 0.5 mg tablet TAKE 1 TABLET BY MOUTH DAILY NEEDED FOR ANXIETY OR SLEEP 07/17 completed Not Available Not Available Not Available propranol ol 10 mg tablet 07/17 completed Medicati on ID: [id number] B rand Name: proprano lol Send Method: E-Prescr ibed Sub s Allowed: subs OK Medic ationGen ericName : proprano lol Not Available Not Available Not Available alprazola m 0.25 mg tablet 03/09 completed Medicati on ID: [id number] D uration Value: 15 Brand Name: alprazol am Send Method: E-Prescr ibed Sub s Allowed: subs OK Medic ationGen ericName : alprazol am Not Available Not Available Not Available prednisol one acetate 1 % eye drops,schuyler pension SHAKE LIQUID AND INSTILL 1 DROP IN BOTH EYES THREE TIMES DAILY FOR 2 WEEKS 07/17 completed Not Available Not Available Not Available lorazepam 0.5 mg tablet 07/17 completed Medicati on ID: [id number] B rand Name: lorazepa m Send Method: E-Prescr ibed Sub s Allowed: subs OK Medic ationGen ericName : lorazepa m Not Available Not Available Not Available desonide 0.05 % topical ointment APPLY TOPICALL Y TO THE AFFECTED AREA TWICE DAILY FOR 7 TO 10 DAYS THEN STOP 07/17 completed Not Available Not Available Not Available levetirac etam 250 mg tablet 07/17 completed Not Available Not Available Not Available trazodone 100 mg tablet TAKE 1 TABLET BY MOUTH AT BEDTIME 07/17 completed Not Available Not Available Not Available pantopraz ole 40 mg tablet,de layed release 07/17 completed Medicati on ID: [id number] B rand Name: pantopra zole Sen d Method: E-Prescr ibed Sub s Allowed: subs OK Medic ationGen ericName : pantopra zole Not Available Not Available Not Available clotrimaz ole-betam ethasone 1 %-0.05 % topical cream APPLY TO THE SKIN OF THE AFFECTED EXTERNAL EAR CANAL WITH FINGERTI P 3 TIMES PER DAY FOR 2 WEEKS 07/17 completed Not Available Not Available Not Available clotrimaz ole 1 % topical solution APPLY 4 DROPS TOPICALL Y TO AFFECTED EAR THREE TIMES DAILY FOR 2 WEEKS 07/17 completed Not Available Not Available Not Available monteluka st 10 mg tablet 07/17 completed Medicati on ID: [id number] B rand Name: monteluk ast Send Method: E-Prescr ibed Sub s Allowed: subs OK Medic ationGen ericName : monteluk ast Not Available Not Available Not Available mupirocin 2 % topical ointment Apply 1 a small amount twice a day 07/17 completed Medicati on ID: [id number] D uration Value: 14 Prescri bed By Name: Alexis dillon MD Brand Name: mupiroci n Send Method: E-Prescr ibed Sub s Allowed: subs OK Medic ationGen ericName : mupiroci n Not Available Not Available Not Available albuterol sulfate HFA 90 mcg/actua tion aerosol inhaler 07/17 completed Medicati on ID: [id number] B rand Name: albutero l sulfate Send Method: E-Prescr ibed Sub s Allowed: subs OK Medic ationGen ericName : albutero l sulfate Not Available Not Available Not Available ipratropi um bromide 42 mcg (0.06 %) nasal spray 07/17 completed Medicati on ID: [id number] B rand Name: ipratrop ium bromide Send Method: E-Prescr ibed Sub s Allowed: subs OK Medic ationGen ericName : ipratrop ium bromide Not Available Not Available Not Available fluticaso ne propionat e 50 mcg/actua tion nasal spray,[facility] 07/17 completed Medicati on ID: [id number] B rand Name: fluticas one propiona te Send Method: E-Prescr ibed Sub s Allowed: subs OK Medic ationGen ericName : fluticas one propiona te Not Available Not Available Not Available TobraDex 0.3 %-0.1 % eye drops,[facility] 03/10 completed Medicati on ID: [id number] D uration Value: 14 Prescri bed By Name: SOPHIE Bentley nd Name: TobraDex Send Method: E-Prescr ibed Sub s Allowed: subs OK Speci al Instruct ion: 4 drops into left ear BID X 14 days Med icationG enericNa me: TobraDex Not Available Not Available Not Available Ciprodex 0.3 %-0.1 % ear drops,schuyler pension Apply 4 drop twice a day 07/17 completed Medicati on ID: [id number] D uration Value: 14 Prescri bed By Name: SOPHIE Bentley nd Name: Ciprodex Send Method: E-Prescr ibed Sub s Allowed: subs OK Speci al Instruct ion: x14 days Med icationG enericNa me: Ciprodex Not Available Not Available Not Available DermOtic Oil 0.01 % ear drops 2 drop 07/17 completed Medicati on ID: [id number] P rescribe d By Name: SOPHIE Appiah nd Name: DermOtic Oil Send Method: E-Prescr ibed Sub s Allowed: subs OK Medic ationGen ericName : DermOtic Oil Not Available Not Available Not Available Symbicort 160 mcg-4.5 mcg/actua tion HFA aerosol inhaler 07/17 completed Medicati on ID: [id number] B rand Name: Symbicor t Send Method: E-Prescr ibed Sub s Allowed: subs OK Medic ationGen ericName : Symbicor t Not Available Not Available Not Available omeprazol e 20 mg tablet,de layed release 03/09 completed Medicati on ID: [id number] D uration Value: 30 Brand Name: omeprazo le Send Method: E-Prescr ibed Sub s Allowed: subs OK Medic ationGen ericName : omeprazo le Not Available Not Available Not Available Vitals Date Recorded Body height Provider Name an d Address Organization Details Last Updated DateTime 07/17/2025 185.42 cm Dorothy Montez [place] - [facility] 07/17/2025 14:24:14 Date Recorded Body height Provider Name an d Address Organization Details Last Updated DateTime 09/09/2024 185.42 cm Dorothy Montez [place] - [facility] 09/09/2024 09:29:12 Social History None recorded. Functional Status None recorded. Mental Status None recorded. Family History Nothing Reported. Medical History No medical history recorded. Past Encounters Encounter ID Performer Location Encounter Start Date Encounter Closed Date Diagnosis/Indication Diagnosis SNOMED-CT Code Diagnosis ICD10 Code Diagnosis IMO Codes Diagnosis Note [id number] ALEXIS ATKINS MD [facility] [address] [place] [address] 09/09/2024 09:02:36 09/09/2024 10:01:53 Chronic eczema of external auditory canal 932070492 H60.8X9 I debrided cerumen AU. I suspect chronic fungal OE. I will have him use lotrisone and clotrimazo le and we will plan a 6 months ear cleaning. Deviated nasal septum 12 9416051 J34.2 stable will observe Chronic my cotic otitis externa 794847608 H60.399 see above Impacted c erumen of bilateral ears 6358104987 650567 H61.23 Recurrent Cerumen Impactions : Ears were meticulous ly cleaned bilaterall y today with a curette and suction. The patient tolerated this well and will follow up for repeat debridemen t per routine. [id number] ALEXIS ATKINS MD [facility] on [address] [place] [address] 07/17/2025 14:18:47 07/17/2025 16:18:19 Deviated nasal septum 038448989 J34.2 He has septal deviation to the right which is mild. I discourage d surgery. I discussed surgery would not help his postnasal drip. Tinnitus of left ear 918 1322422 106 H93.12 584320 We reviewed his last audiogram from October 2023 which showed mainly symmetric high-frequ ency sensorineu ral hearing loss which is mild. I offered a new audiogram but he deferred for now. He said he would call back if interested . Health Concerns Section Related Observation LastModified by Organization Detai ls LastModified Time None Recorded Concern Status LastModified by Organization Details LastModified Time None Recorded Advance Directives Directive None Recorded Payers Insurance Date Sequence Insurance Name Policy Number Policy Ulrich Covered Member ID Ulrich Member ID Guarantor Name 07/17/2025 1 [facility] (PPO) [id number] Bridger Hart [id number] Bridger Hart 07/17/2025 1 [facility] [employer] (PPO) [id number] Bridger Hart [id number] Bridger Hart Notes Date Note Type Note Provider Name and Address Organization Details Recorded Time 09/09/2024 text/html ROS as noted in the HPI tinnitus and itchy ears nasal obstructionHe presents with a crackling sound in the left ear for 6 ears since swimming in the pool. His ears itch. He tried not to scratch it. He has tried moisturizers and olive oil which helps only temporarily. audio showed mild HF SnHL AU in October. Hx of nasal obstruction. Discussed septoplasty but he is not currently interested in surgery. ALEXIS ATKINS MD [address] [place] [address], [phone], [facility] 09/09/2024 09:59:45 07/17/2025 text/html ROS as noted in the HPI He has a history of septal deviation. He reports post nasal drip. He has to clear copious mucus from his nasal passage each day. He has not tried a nasal sinus rinse recently. He has occasional epistaxis and used to use Anahola gel. He also has left tinnitus. Had an audiogram 10/2023 which showed symmetric HF SNHL. He feels he has developed gradual worsening of his tinnitus since the last visit. ALEXIS ATKINS MD [address] [place] [address],[address], [address], [facility] 07/17/2025 15:17:29
--- OUTSIDE RECORDS SUMMARY | 2025-07-31 10:19 | XMS_ITS | Encounter Summary ---
Author Organization [facility] Address [address] [place] [address] Care Team Providers Care Inspector Plug Seam Name Role Phone Unavailable Primary Care Provider Unavailabl e Encounter Details Date Type Department Care Team ([facility] st Contact Info) Description 01/29/2024 Scanned Document [facility] SCHEDULING [address] [place], [place] [id number] Provider, Historical . Social History Tobacco Use Types Packs/Day Years Used Date Smoking Tobacco: Never Assessed Sex and Gender Information Value Date Recorded Sex Assigned at Not on file Legal Sex Male 3:57 PM EDT Gender Identity Not on file Sexual Orientation Not on file documented as of this encounter Plan of Treatment Not on file documented as of this encounter Procedures Procedure Name Priority Date/Time Associated Diagnosis Comments MRI RESULT SCAN Routine 12/18/2023 6:39 PM EDT documented in this encounter Results * MRI Result Scan (12/18/2023 6:39 PM EDT) Historical Provider IMG SCAN REPORTS Final Resul t documented in this encounter Visit Diagnoses Not on filedocumented in this encounter Care Teams Inspector Plug Seam Relationship Specialty Start Date End Date Estuardo Majano, [facility] Internal Medicine Address: [address] [place] [address] Primary Care Provider Internal Medicine 05/16/24 documented as of this encounter
--- OUTSIDE RECORDS SUMMARY | 2025-07-31 10:19 | XMS_ITS ---
Author Name [facility] Organization Unknown Encounters Encounter Type Encounter Reason Primary Diagnosis Location Date Ambulatory [facility] [place] 06/13/2023 Care Team Organization Name Specialty Phone Email Start Date End [facility] NO PCP Primary Care 02/03/2022 02/03/2022
--- OUTSIDE RECORDS SUMMARY | 2025-07-31 10:19 | XMS_ITS | Encounter Summary ---
Author Organization [facility] Address [address] [place] [address] Care Team Providers Care Construction And Maintenance Inspector Name Role Phone Unavailable Primary Care Provider Unavailabl e Encounter Details Date Type Department Care Team ([facility] st Contact Info) Description 05/16/2024 Scanned Document [facility] [address] [address] Nj Lee MD [address] [place] [phone] Social History Tobacco Use Types Packs/Day Years [...] on filedocumented in this encounter Care Teams Construction And Maintenance Inspector Relationship Specialty Start Date End Date Estuardo Majano [facility] Internal Medicine Address: [address] [address] Primary Care Provider Internal Medicine 05/16/24 documented as of this encounter
--- OUTSIDE RECORDS SUMMARY | 2025-07-31 10:19 | XMS_ITS | Clinical Summary ---
Author Organization [facility] Address [address] [place] [id number] Phone Care Team Providers Care Painting Worker Name Role Phone Bety Aguirre Primary Care Provider [phone] Chico Bonilla MD Unavailable [phone] Allergies No known active allergies Medications levothyroxine (SYNTHROID, LEVOTHROID) 100 MCG tablet daily. 8 Active levETIRAcetam (KEPPRA) 250 MG tablet Hasnt taken in the last 3 months using as needed from spinal injury hasnt had siezure ever this is for muscle twitching 2 Active ALPRAZolam (XANAX) 0.5 MG tablet Take 0.5 mg by mouth nightly at bedtime as needed for sleep. Active amitriptyline (ELAVIL) 25 MG tablet START 1 TABLET AT BEDTIME AND INCREASE TO 2 TABLET BY MOUTH DAILY AT BEDTIME 3 Active Active Problems Problem Noted Date Diagnosed Date Sleep-disordered breathing 09/10/2022 Cervical spine disease 09/10/2022 Multiple thyroid nodules 09/10/2022 Shortness of breath 05/11/2022 Overview (09/09/2022): Last Assessment & Plan: Ischemic work-up has been so far negative. Palpitations 11/11/2020 Overview (09/09/2022): Last Assessment & Plan: He had a quite extensive evaluation for palpitation and had infrequent PACs and PVCs. Try to reassure him. I suggest him to take propanolol as scheduled rather than as needed. He has been trying to avoid medication if possible. GERD (gastroesophageal reflux disease) 9 Hyperlipidemia 12/10/2018 Insomnia 12/10/2018 Anxiety 12/02/2018 Bo's thyroiditis 12/02/2018 Overview (09/09/2022): hypothyroidism Family History Medical History Relation Comments Heart disease Father Hypothyroidism Mother No Known Problems Sister Relation Status Comments Father Mother Sister Alive Social History Tobacco Use Types Packs/Day Years Used Date Smoking Tobacco: Never Smokeless Tobacco: Never Tobacco Cessation:Counseling Given: Not Answered Alcohol Use Standard Drinks/Week Comments Never 0 (1 standard drink = 0.6 oz pur e alcohol) Education Answer Date Recorded Are you interested in more education? Not on sonja e 01/26/2023 Are you concerned about learning? Not on file 01/26/2023 No 01/26/2023 No 01/26/2023 Digital Access Answer Date Recorded No 02/27/2023 No 02/27/2023 No 02/27/2023 Reliable internet access at home? Not on file 02/27/2023 Device with a working camera? Not on file Comments Unknown Sex and Gender Information Value Date Recorded Sex Assigned at Choose not to disclose 10:59 AM EST Legal Sex Male 12:50 PM EDT Gender Identity Choose not to disclose 10:59 AM EST Sexual Orientation Choose not to disclose 2021 10:59 AM EST Last Filed Vital Signs Vital Sign Reading Time Taken Comments Blood Pressure 144/73 11/02/2022 2:38 PM EST Pulse 68 11/02/2022 2:38 PM EST Temperature 36.7 C (98.1 F) 10/06/2022 1:58 PM EST Respiratory Rate 16 10/06/2022 1:58 PM EST Oxygen Saturation 98% 11/02/2022 2:3 8 PM EST pt reports low oxygen levels at home, SOB Inhaled Oxygen Concentration - - Weight 120.2 kg (265 lb) 10/13/2022 1:3 9 PM EST Height 185.4 cm (6' 1 ) 10/13/2022 1:39 PM EST Body Mass Index 34.96 10/13/2022 1:39 PM EST Plan of Treatment Health Maintenance Due Date Last Done Comments LIPID PANEL 1962 HEPATITIS C SCREENING 1980 HIV ONE-TIME SCREENING (18-6 5 YEARS) 1980 SCREENING FOR DIABETES 1997 COLOGUARD 2007 COLONOSCOPY 2007 COLORECTAL CANCER SCREENING 2007 FIT TEST 2007 FOBT 2007 SIGMOIDOSCOPY 2007 VIRTUAL COLONOSCOPY 2007 PNEUMOCOCCAL VACCINES (50+ years) (1 of 1 - PCV) 2012 ZOSTER VACCINES (1 of 2) 2012 Adult Td,Tdap Booster 02/17/2018 02/18/2008 DEPRESSION SCREENING 09/05/2023 09/05/2022 TSH LEVEL 04/24/2024 04/24/2023, 11/10/2022 INFLUENZA VACCINE (#1) 2025 COVID-19 VACCINE (1 - 2024-2 6 season) 2025 RSV VACCINE (1 - 1-dose 75+ series) 2037 SMOKING STATUS SCREENING (On ce After 26 Yrs) Completed 10/13/2022 HEPATITIS A VACCINES Aged Out No long er eligible based on patient's age to complete this topic HIB VACCINES Aged Out No longer eligi ble based on patient's age to complete this topic MENINGOCOCCAL VACCINES (ACWY) Aged Out No longer eligible based on patient's age to complete this topic MENINGOCOCCAL VACCINES (B) Aged Out N o longer eligible based on patient's age to complete this topic Medical Devices Implanted Type Area Field Operations Coordinator Device Identifier Shelf Expiration Date Model / Serial / Lot Screw Screw Spine Cervical Description:Cervical fusion from injury mulitple hardware items per pt Procedures Procedure Name Priority Date/Time Associated Diagnosis Comments TSH WITH REFLEX Routine 04/24/2023 10:39 AM EDT Multiple thyroid nodules from Last 3 Months or Most Recently Relevant to Health Maintenance Results * TSH with reflex (04/24/2023 10:39 AM EDT) TSH 3.02 0.27 - 4.20 uIU/mL [facility] Blood 04/24/2023 10:3 9 AM EDT 04/24/2023 10:41 AM EDT us Shannan Ramirez MD LAB BLOOD ORDERABLES Final Res ult [address] [id number] from Last 3 Months or Most Recently Relevant to Health Maintenance [facility] Better Weekdays [facility] CHOICE [facility] COMMUNITY CHOICE Care Teams Painting Worker Relationship Specialty Start Date End Date Bety Aguirre PA PCP - General Unknown Provider Specialty 08/03/20 Chico Bonilla MD [address] [place] [address] Internal Medicine 09/08/20 Additional Source Comments The information contained in this document represents components of the legal health record. It is not the complete legal health record.[facility]
--- OUTSIDE RECORDS SUMMARY | 2025-07-31 10:19 | XMS_ITS | Clinical Summary ---
Author Organization [facility] Address [address] [place] [address] Care Team Providers Care On Air Announcer Name Role Phone Pcp, No Primary Care Provider Unavailabl e Social History Tobacco Use Types Packs/Day Years Used Date Smoking Tobacco: Never Assessed Sex and Gender Information Value Date Recorded Sex Assigned at Not on file Legal Sex Male 9:54 AM EDT Gender Identity Not on file Sexual Orientation Not on file Plan of Treatment Health Maintenance Due Date Last Done Comments Hepatitis C Virus Screening 1962 HIV Screening 1975 DTaP/Tdap/Td Vaccines (1 - Tdap) 1981 Pneumococcal Vaccines 50+ (1 of 1 - PCV) 2012 Zoster (Shingles) Vaccine (1 of 2) 2012 COVID-19 Vaccine (1 - 2023-2 5 season) 2025 RSV Vaccine 50 years and old er and Patients (1 - 1-dose 75+ series) 2037 Hepatitis B Vaccines Aged Out No long er eligible based on patient's age to complete this topic Care Teams On Air Announcer Relationship Specialty Start Date End Date Pcp, No PCP - General General Medicine 01/30/22
--- OUTSIDE RECORDS SUMMARY | 2025-07-31 10:19 | XMS_ITS | Encounter Summary ---
Author Organization [facility] Address [address] [place] [address] Care Team Providers Care Orthopedic Shoes Salesperson Name Role Phone Pcp, No Primary Care Provider Unavailabl e Encounter Details Date Type Department Care Team (Late st Contact Info) Description 03/09/2025 Scanned Document [facility] [address] [place] [address] Urology, Scan Social History Tobacco Use Types Packs/Day Years [...] on filedocumented in this encounter Care Teams Orthopedic Shoes Salesperson Relationship Specialty Start Date End Date Pcp, No PCP - General General Medicine 01/30/22 documented as of this encounter
== END 2025-07-31 09:55 | disposition home or self-care (01) ==
LOC: HO.HNS 09:20
PROVIDERS: PCP Physician Assistant Medical; Visit Provider Neurological Surgery
DX: Z98.1 Arthrodesis status (principal)
CPT/HCPCS: 99203